=== PATIENT | male | born 2000 | race Caucasian/White ===

== ENCOUNTER 2022-12-22 20:40 | Emergency (ER) | payer OTHER, BC, SELFPAY ==
[2022-12-22 20:42] VITALS: BP 121/72; PULSE 71; RESP 15; TEMP 36.7; O2SAT 100; BMI 29.0
--- NOTE | 2022-12-22 21:01 | EDS_ITS ---
HPI History of Present Illness Chief Complaint: Bite Narrative Narrative: Presents after squirrel bites to his right hand. It bit him ran up his arm back down his arm and bit him again. He has a bite on the back of the hand side of the index and thumb. Last tetanus is probably about 10 years. No other complaints. He is right-hand dominant. [facility] ED Gastrointestinal Gastrointestinal: Denies nausea or vomiting Integumentary Reports Abrasions and other Details: See history of present illness. Hematologic/Lymphatic Hematologic/Lymphatic: Denies easy bleeding, easy bruising or lymphadenopathy PFSH PFSH Home Medications amoxicillin 875 mg-potassium clavulanate 125 mg tablet 1 tab PO BID #14 tabs 12/22/22 [Rx Last Taken Unknown] Allergy/AdvReac Type Severity Reaction Status Date / Time No Known Allergies Allergy Verified 12/22/22 20:44 EXAM Physical Exam Narrative Exam Narrative: Wake alert no acute distress. HEENT shows no trauma Cardiorespiratory: Breathing is easy and unlabored Extremities do show a little tear of the skin on the dorsum of the right hand. There is also just a little bit of a break on the distal medial aspect of the thumb and the lateral aspect of the right index but not over a joint. None of these are inflamed. None of these are bleeding. Const Vital Signs: 12/22/22 20:42 Temperature 98.1 F Temperature Source Temporal Pulse Rate 71 Respiratory Rate 15 Blood Pressure 121/72 H Blood Pressure Mean 88 Pulse Ox 100 Oxygen Delivery Method Room Air MDM MDM MDM Narrative Medical decision making narrative: Per CDC, squirrels have never been shown to transmit rabies to humans. I do not think we need rabies immunizations. I think antibiotics and a tetanus update are appropriate. I discussed with the patient findings and ask infected course of healing. We also discussed specific reasons and signs of infection that would bring him back. Discharge Plan Triage Chief Complaint: Bite ED Provider: Joseph Castellanos Dx/Rx/DC Orders Clinical Impression: Bitten by squirrel Instructions: ED Animal Bite (General) Prescriptions: New amoxicillin-pot clavulanate 875-125 mg tablet 1 tab PO BID Qty: 14 0RF Primary Care Provider: Karam Samaniego Referrals: Karma Samaniego MD [Primary Care Provider] - 3-5 Days if not improving Disposition Disposition: Home, Self Care
[2022-12-22] MEDS: Diphth,Pertuss(Acell),Tet Vac 0.5 ML Vial IM (21:08)
[2022-12-22] MEDS: Amox/Clavulanate 875 MG Tablet PO (21:12)
== END 2022-12-22 21:17 | disposition home or self-care (01) ==
LOC: ED 21:09
PROVIDERS: Emergency Provider Emergency Medicine; PCP Nurse Practitioner Family; Visit Provider Emergency Medicine
DX: S61.451A Open bite of right hand, initial encounter (principal); Z23 Encounter for immunization; W53.21XA Bitten by squirrel, initial encounter
CPT/HCPCS: 90471; 90715; 99283